=== PATIENT | male | born 1965 | race Caucasian/White ===

== ENCOUNTER 2023-09-19 09:58 | Emergency (ER) | payer OTHER, SELFPAY ==
[2023-09-19 10:03] VITALS: PULSE 96; RESP 18; TEMP 36.9; O2SAT 98
[2023-09-19 11:19] VITALS: BP 129/94; PULSE 80; RESP 18; O2SAT 100
--- NOTE | 2023-09-19 11:46 | ED.EXTPRO ---
HPI - Extremity Problem General Chief complaint: Extremity Problem,Nontraumatic Stated complaint: foot pain Time Seen by Provider: 09/19/23 10:03 History of Present Illness HPI Narrative: Patient is a 58-year-old male who presents ER with foot pain. Right-sided. Plantar aspect anterior calcaneal region. Worse with walking and standing. No fevers or chills or sweats. No leg swelling. No improvement with massage and using a tennis ball. Related Data Allergies Allergy/AdvReac Type Severity Reaction Status Date / Time codeine AdvReac Mild BELLY PAIN Verified 09/19/23 10:10 Review of Systems Constitutional: Constitutional: Reports no additional constitutional complaints Musculoskeletal: Musculoskeletal: Denies joint swelling and Denies muscle cramps Comments: right foot pain Integumentary/Breasts: Skin/Breast: Reports system reviewed and no additional complaints, except as docu Neurologic: Denies focal weakness and Denies numbness PMFSH Past Medical History Medical History (Updated 09/19/23 @ 11:[address] MD) Healthy adult male Surgical History Surgical History (Updated 09/19/23 @ 11:[address] MD) H/O inguinal hernia repair Hx of appendectomy Course Course Emergency Course: unremarkable x-ray with no discussed conservative therapy. Offered postop shoe which she does not find comfortable. Vital Signs Vital signs: Vital Signs Temperature 98.5 F 09/19/23 10:03 Pulse Rate 96 09/19/23 10:03 Respiratory Rate 18 09/19/23 10:03 Pulse Oximetry 98 09/19/23 10:03 Oxygen Delivery Room Air 09/19/23 10:03 Temperature 98.5 F 09/19/23 10:03 Pulse Rate 80 09/19/23 11:19 Respiratory Rate 18 09/19/23 11:19 Blood Pressure 129/94 H 09/19/23 11:19 Pulse Oximetry 100 09/19/23 11:19 Oxygen Delivery Room Air 09/19/23 10:03 MDM - Extremity (Nontraumatic) Imaging Data Radiologist's impression: ITS Impressions Foot X-Ray 09/19/23 10:38 Impression: Unremarkable right foot radiographs. Discharge Plan Discharge Clinical Impression: Plantar fasciitis of right foot Patient Disposition: Home, Self-Care Condition: Stable Instructions: Plantar Fasciitis (ED) Additional Instructions: Return the ER if you suffered a new injury, you foot is red/ hot /swollen, you have additional concerns. Follow-up with your primary care doctor as you may require physical therapy or a steroid injection. Prescriptions: New naproxen 375 mg tablet 375 mg PO BID Qty: 14 0RF Follow-up/Referrals: Carlito,Roopa Dixon MD [Primary Care Provider] - 1 Week
== END 2023-09-19 11:59 | disposition home or self-care (01) ==
PROVIDERS: Emergency Provider Emergency Medicine; PCP Family Medicine
DX: M72.2 Plantar fascial fibromatosis (principal)
CPT/HCPCS: 73630; 99283